=== PATIENT | female | born 1940 | race Caucasian/White ===

== ENCOUNTER 2023-10-23 13:51 | Inpatient (IN) | payer OTHER, SELFPAY ==
[2023-10-19] VITALS (17 sets, daily range): BP systolic 161–207; BP diastolic 75–174; PULSE 78; O2SAT 97; BMI 23.4; BMI 23.6
--- NOTE | 2023-10-19 13:41 | ED.GENMED ---
History of Present Illness
General
Chief Complaint: Weakness
Source: patient
Time Seen by Provider: 10/19/23 13:21
Travel History
Have you had any contact with someone who has COVID-19?: No
Do you have any symptoms of coronavirus? Fever > 100 degrees, chills, cough, shortness of breath, sore throat, loss of taste or smell, muscle aches, or headache?: No
History of Present Illness
History of Present Illness:
83-year-old female with past medical history of multiple myeloma presenting to the emergency department for evaluation of generalized weakness, diminished p.o. intake and generally feeling unwell over the last week. Patient went to [facility] on evening last week and was admitted until Monday when she was discharged back home however patient states that she was told she would be going to a rehab facility so is unclear as to why she was discharged home and
not to rehab. She states she never feels as if she should have gone home as she continues to feel weak and noted her blood pressure was very elevated while she was in the hospital. Patient's friend was coming to pick her up to take her to her
oncology appointment today when the friend describes the patient to be 'as white as a ghost' and did not look well so they decided to come to the emergency here for further evaluation. Friend notes patient does look better now and patient does
admit to feeling a little bit better presently but still generally weak. She notes that she was given a walker to go home with. No urinary symptoms, bowel changes, chest pain, shortness of breath or any other alarcon.
Past History
Past History
ED Past Medical History: Cancer and HTN
Social History
Tobacco: Non-smoker
Alcohol: None
Drug: None
Personal:
Living: alone
Review of Systems
Review of Systems
All Other Systems: ROS reviewed and negative except as documented in HPI and ROS
Phy Exam
Physical Exam
Physical Exam:
GENERAL: Alert , in no apparent distress
EYE: clear conjunctiva b/l
HEAD: NCAT
ENT: o/p clr, mmm.
CARDIAC: Regular rate and rhythm right anterior chest wall port.
LUNGS: Clear breath sounds bilaterally, no acute respiratory distress, no wheezes/rales/rhonchi
ABDOMEN: Soft, without focal tenderness, no r/g, no cvat
NEUROLOGICAL: Alert and oriented
SKIN: Warm and dry, skin intact.
MUSCULOSKELETAL: Trace ankle edema, well perfused.
PSYCH: Normal and appropriate interaction.
Scores
Heart Failure Risk
Heart Failure Risk Score: Not Applicable
Heart Score for Chest Pain Patients
STEMI patient?: Not applicable
Withdrawal Assessment of Alcohol
Withdrawal Assessment Completed?: Not applicable
Course
Orders/Labs/Results
Orders:
Orders
10/19/23 13:32
Electrocardiogram (*1) Urgent
Reason for Study: Fatigue / Weakness
EKG- Treatment ONCE
10/19/23 13:34
Case Management Consult ONCE
Case Management Consult: Discharge Planning
Comment: needs rehab
PT Consult [Pt Eval And Treat] Urgent
Activity Level: Ambulate
10/19/23 14:27
Complete Blood Count/With Diff Urgent
Comprehensive Metabolic Panel Urgent
Magnesium Urgent
10/19/23 15:06
Urinalysis Reflex To Culture Urgent
Date Specimen was Collected: 10/19/23
Time Specimen was Collected: 13:41
Urine Microscopic Reflex Cult Urgent
Labetalol HCl [Trandate] 10 mg IV NOW STA
10/19/23 16:10
Labetalol HCl [Trandate] 10 mg IV NOW STA
Abnormal Lab Results
10/19/23 10/19/23
14:27 15:06
WBC 13.1 H 10^3/uL
(4.8-10.8)
RBC 3.19 L 10^6/uL
(4.20-5.40)
Hgb 10.7 L g/dL
(12.0-16.0)
Hct 32.7 L %
(37.0-47.0)
MCV 102.5 H fL
(81.0-99.0)
MCH 33.5 H pg
(27.0-31.0)
MCHC 32.7 L g/dL
(33.0-37.0)
MPV 11.3 H fL
(7.4-10.4)
Abs Immat Gran (auto) 0.3 H 10^3/uL
(0-0.05)
Absolute Neuts (auto) 10.3 H 10^3/uL
(1.4-6.5)
Absolute Lymphs (auto) 0.8 L 10^3/uL
(1.2-3.4)
Absolute Monos (auto) 1.0 H 10^3/uL
(0.1-0.6)
Immature Gran % 2.2 H %
(0-0.5)
Neutrophils % 79.1 H %
(42.2-75.2)
Lymphocytes % 6.4 L %
(20.5-51.1)
Chloride 109 H mmol/L
(98-107)
BUN 21 H mg/dl
(7-17)
ALT 46 H U/L
(0-35)
Alkaline Phosphatase 181 H U/L
(38-126)
Total Protein 5.0 L g/dl
(6.3-8.2)
Albumin 3.2 L g/dl
(3.5-5.0)
Urine Albumin (Reflex) 1+ A
(Neg - Trace)
10/19/23 14:27
10/19/23 14:27
Vital Signs
Initial and Last Documented VS:
Initial Vital Signs
Temp Pulse Resp BP Pulse Ox
97.8 F 100 18 182/107 96
10/19/23 11:39 10/19/23 11:39 10/19/23 11:39 10/19/23 11:39 10/19/23 11:39
Last Documented Vital Signs
Temp Pulse Resp BP Pulse Ox
97.8 F 71 23 202/88 97
10/19/23 11:39 10/19/23 14:30 10/19/23 14:30 10/19/23 14:16 10/19/23 14:30
MDM/Problems Addressed
Differential Diagnosis Includes:
Electrolyte disturbance, anemia, hypertensive urgency, no symptoms that would be suggestive of infection outside of weakness
MDM/Problems Addressed:
83-year-old female presenting to the emergency department for evaluation of generalized weakness. Recent admit at [facility] but was discharged home this past Monday evening. Patient reports that she was all set to go to rehab however it is
unclear as to why patient was discharged home and not to a rehab facility. Patient reports she does not feel comfortable or safe at home on her own presently. Patient's friend who is present with her in the emergency department states patient did
look very pale and unwell earlier today. Overall patient does appear hemodynamically stable and in no acute distress. Hypertension in triage was noted, during my exam down to 168/90. Case management and physical therapy consult ordered.
Reassessment following.
Chronic conditions affecting care: HTN
Acute Exacerbation and/or Progression of Chronic Illness: HTN
*Pulse Oximetry
Patient hypoxic: no
*Business Services Associate Interpretation
Rate: normal
Rhythm: sinus
*Critical Care Note
Total Time (30-74mins, 75-104mins- exclusive of procedures): Not Applicable
Patient Management
Discussion with other providers: Hospitalist and Other (Physical Therapy/Case Management)
Escalation/DeEscalation of care consider admission/obs:
Patient seen by physical therapy team. She was able to ambulate unassisted and ultimately physical therapy felt patient would do okay at home and does not need rehab. I discussed this with patient and she would feel comfortable being discharged
home but is still concerned about her blood pressure. This was rechecked multiple times and remains elevated. Patient reports good compliance with her antihypertensive regimen. Will trial a dose of IV labetalol. Awaiting case management
consultation in hopes to have a visiting nurse come out to patient's home for continued evaluation
Patient's blood pressure continuously elevated despite IV labetalol. Second dose was given but due to multiple pressures with systolic around 190-210 and diastolic around 100 feel patient would be best served admitted for blood pressure monitoring
and management. Case management is aware that patient to be admitted. They will continue their consultation with disposition planning. Hospitalist team is aware and accepts for continued evaluation and treatment.
ED Attending Note
-
Portions of this chart may have been created with voice recognition software.� Occasional wrong word or��sound alike� substitutions may have occurred due to the inherent limitations of voice recognition software.
Discharge Plan
Departure
Patient Disposition: Admit
Date of Disposition: 10/19/23
Time of Disposition: 16:11
Presentation/result/management discussed w/ accepting MD/DO: Hospitalist
Discharge Problem:
Hypertensive urgency, Anemia, Generalized weakness
Prescriptions:
No Action
dexamethasone 4 mg tablet
40 mg PO FR
zolpidem 10 mg tablet
3.3 mg PO HSPRN PRN (Reason: sleep)
Patient Comments:
07/08/22-patint states she cut this in thirds
glyburide 1.25 mg tablet
1.25 mg PO BID
therapeutic multivitamin Tablet
1 tab PO DAILY
ferrous sulfate 325 mg (65 mg iron) Tablet
162.5 mg PO DAILY
ibuprofen 400 mg Tablet
400 mg PO Q8H PRN (Reason: back pain)
cholecalciferol (vitamin D3) [Vitamin D3] 25 mcg (1,000 unit) Tablet
25 mcg PO DAILY
omega 5-clg-snr-fish oil [Fish Oil] 1,000 mg (120 mg-180 mg) Capsule
1 cap PO DAILY
losartan 50 mg Tablet
50 mg PO DAILY Qty: 30 3RF
metoprolol succinate 25 mg Tablet Extended Release 24 Hr
25 mg PO BID Qty: 60 3RF
Referrals:
Gerard Ayers MD [Family Provider] -
Interventions
Interventions:
*Risk Screen - Suicide Last Done: 10/19/23 11:42
*General Assessment Last Done: 10/19/23 11:42
*Neglect/Abuse Screening Last Done: 10/19/23 11:42
ED- Cardiac Assessment Last Done: 10/19/23 13:07
ED- Neurological Assessment Last Done: 10/19/23 13:07
ED- Pulmonary Assessment Last Done: 10/19/23 13:07
Discharge Date and Time
Print Language: THAI
[2023-10-19 14:45] LABS: % Basophils 0.7 % (0-2); % Eosinophils 3.7 % (0-6); % Immature Granulocytes 2.2 % (0-0.5); % Lymphocytes 6.4 % (20.5-51.1); % Monocytes 7.9 % (1.7-9.3); % Neutrophils 79.1 % (42.2-75.2); Absolute Basophils 0.1 10^3/uL (0-0.2); Absolute Eosinophils 0.5 10^3/uL (0-0.7); Absolute Immature Granulocytes 0.3 10^3/uL (0-0.05); Absolute Lymphocytes 0.8 10^3/uL (1.2-3.4); Absolute Neutrophils 10.3 10^3/uL (1.4-6.5); Hematocrit 32.7 % (37.0-47.0); Hemoglobin 10.7 g/dL (12.0-16.0); Mean Corp Hgb Conc. 32.7 g/dL (33.0-37.0); Mean Corpuscular Hgb 33.5 pg (27.0-31.0); Mean Corpuscular Volume 102.5 fL (81.0-99.0); Mean Platelet Volume 11.3 fL (7.4-10.4); Nucleated Red Blood Cells % 0 %; Platelet Count 296 10^3/uL (130-400); Red Blood Cell Count 3.19 10^6/uL (4.20-5.40); Red Cell Dist. Width 13.3 % (11.5-14.5); White Blood Cell Count 13.1 10^3/uL (4.8-10.8)
[2023-10-19 14:54] LABS: ALT (SGPT) 46 U/L (0-35); AST (SGOT) 35 U/L (14-36); Albumin 3.2 g/dl (3.5-5.0); Alkaline Phosphatase 181 U/L (38-126); Blood Urea Nitrogen 21 mg/dl (7-17); Calcium 9.8 mg/dl (8.4-10.2); Carbon Dioxide 27 mmol/L (22-30); Chloride 109 mmol/L (98-107); Estimated Creatinine Clearance 49 ml/min; Glucose 97 mg/dl (70-99); Magnesium 1.9 mg/dl (1.6-2.3); Sodium 139 mmol/L (135-145); eGFR > 60.00
[2023-10-19 15:15] LABS: Urine Albumin 1+ (Neg - Trace); Urine Bilirubin Negative (Negative); Urine Character Clear (Clear); Urine Color Yellow; Urine Glucose Negative (Negative); Urine Ketone Negative (Negative); Urine Leukocyte Negative (Negative); Urine Nitrite Negative (Negative); Urine Occult Blood Negative (Negative); Urine Specific Gravity 1.015 (<1.030); Urine Urobilinogen Negative (Neg - 1+)
[2023-10-19] MEDS: TRANDATE 10 MG IV (15:17)
[2023-10-19 15:33] LABS: Urine Mucus Few; Urine Squamous Cell 0-2 /LPF (Few)
[2023-10-19 15:34] LABS: Urine Amorphous Seen; Urine Granular Cast 0-2 /LPF (0); Urine Hyaline Cast 0-2 /LPF (0-2); Urine Red Blood Cell 0-2 /HPF (0-2)
--- NOTE | 2023-10-19 16:43 | HPS.HSE ---
Addendum entered and electronically signed by Tamara Hartley MD 10/19/23 16:52:
Corrections to med rec made. Patient not on glyburide and not on levothyroxine.
Original Note:
Family Physician
-
Family Physician: Gerard Ayers
Chief Complaint
-
weakness
History of Present Illness
83-year-old female past medical history of multiple myeloma on chemotherapy, hypertension, iron deficiency anemia, hyperlipidemia, prediabetes/steroid-induced hyperglycemia, presenting with generalized weakness, decreased p.o. intake and generally
feeling unwell over the past week. She went to [facility] on evening last week after a fall due to generalized weakness and was admitted until 2 days ago and discharged back home. During the hospitalization she was found to be
hypertensive and states that her losartan was increased from 50 mg to 100 mg. Patient was told that she will be going to rehab facility and it was unclear why she was discharged home as she continues to feel very weak.
Patient's friend was coming to pick her up to take her to oncology appointment today when the friend described the patient to look white as a ghost so they brought her to the emergency room. Friend notes the patient is better now and patient does
admit to feeling better although still weak.
She states that she has had a dry cough for the past 2 weeks with some shortness of breath with exertion. She had 2 chest x-rays performed by her primary care physician within the past week which were apparently unremarkable. She denies nausea or
vomiting, abdominal pain or diarrhea. She denies any urinary symptoms. She denies any fevers or chills. She denies any significant headache at this time. Denies any blurry vision. Denies any numbness or tingling or focal weakness. She does
sometimes feel dizzy. She has some increased lower extremity edema but has lost weight recently.
She last received chemotherapy a week ago and is supposed to receive it today.
She denies smoking or alcohol use.
Medical History
Past Medical History
Past Medical History: Reports Other (multiple myeloma on chemotherapy, hypertension, iron deficiency anemia, hyperlipidemia, prediabetes/steroid-induced hyperglycemia,)
Past Surgical History: Reports None
Social History
Tobacco: Non-smoker
Alcohol: None
Drug: None
Family History
Family History: Not pertinent
Allergies / Home Medications
Allergies reflects when Allergies were last updated in [facility].
Home Medications with original date entered in [facility]
Allergy/Medication List:
Allergies
Allergy/AdvReac Type Severity Reaction Status Date / Time
No Known Allergies Allergy Verified 10/19/23 11:41
Home Medications
cholecalciferol (vitamin D3) 25 mcg (1,000 unit) tablet (Vitamin D3) 25 mcg PO DAILY Supplement 07/08/22
ferrous sulfate 325 mg (65 mg iron) tablet 162.5 mg PO DAILY Supplement 07/08/22
ibuprofen 400 mg tablet 400 mg PO Q8H PRN back pain 07/08/22
omega 8-jiw-tcc-fish oil 1,000 mg (120 mg-180 mg) capsule (Fish Oil) 1 cap PO DAILY Supplement 07/08/22
therapeutic multivitamin 1 tab PO DAILY Supplement 07/08/22
zolpidem 10 mg tablet 10 mg PO HSPRN PRN sleep 07/08/22
losartan 50 mg tablet 50 mg PO DAILY #30 tabs 07/11/22
metoprolol succinate 25 mg tablet,extended release 24 hr 25 mg PO BID #60 tabs 07/11/22
acyclovir 400 mg tablet 400 mg PO BID 10/19/23
ibandronate 150 mg tablet 150 mg PO QMONTH 10/19/23
levothyroxine 50 mcg tablet 50 mcg PO DAILY 10/19/23
metformin 500 mg tablet 500 mg PO DAILY 10/19/23
rosuvastatin 20 mg tablet 20 mg PO DAILY 10/19/23
Review of Systems
-
History Source: Patient
A 12 point ROS was completed and negative except as noted: Yes
Constitutional: Reports See HPI
EENT: Reports No Symptoms
Respiratory: Reports See HPI
Cardiac: Reports No Symptoms
Abdomen/GI: Reports No Symptoms
: Reports No Symptoms
Musculoskeletal: Reports No Symptoms
Skin: Reports No Symptoms
Neurological: Reports No Symptoms
Endocrine: Reports No Symptoms
Hematologic/Lymphatic: Reports No Symptoms
Psych: Reports No Symptoms
Physical Exam
Vital Signs
Vital Signs
Temp Pulse Resp BP Pulse Ox
97.8 F 71 23 202/88 97
10/19/23 11:39 10/19/23 14:30 10/19/23 14:30 10/19/23 14:16 10/19/23 14:30
Physical Exam
General: Well Developed, Well Nourished and No Apparent Distress
HEENT: NormoCephalic, Moist mucous membranes and Atraumatic
Respiratory: Clear
Cardiac: S1/S2, Regular Rhythm and Peripheral Edema; No Murmur or Rub
GI: Soft, Non Tender, Non Distended and Normal Bowel Sounds; No Organomegaly
Rectal: Deferred by Provider
Musculoskeletal: No Clubbing, No Cyanosis and No Edema
Skin: No Rash
Neuro: Nonfocal/grossly intact
Laboratory Results
-
10/19/23 14:27
10/19/23 14:27
Laboratory Results
Total Bilirubin 1.0 mg/dl (0.2-1.3) 10/19/23 14:27
AST 35 U/L (14-36) 10/19/23 14:27
ALT 46 U/L (0-35) H 10/19/23 14:27
Alkaline Phosphatase 181 U/L (38-126) H 10/19/23 14:27
Data Reviewed
-
Lab Data: Labs Reviewed by me
Old Records: Reviewed
Impression/Plan
-
IMPRESSION:
PLAN:
# Fatigue likely secondary to hypertensive urgency
-Blood pressure as high as 202/88
-IV labetalol given without any response
-Give IV hydralazine every 6 as needed
-Continue losartan 100 mg
-Continue metoprolol 25 mg twice daily
-PT/OT
# Leukocytosis likely secondary to weekly steroids
-Continue to monitor
# Dry cough and dyspnea
-Check chest x-ray
-Check COVID
Incidentally discovered meningioma
-CT head shows 8 mm calcified meningioma in the left paramedian superior/anterior frontal region abutting the underlying left frontal lobe cortex without significant mass effect
Moderate bilateral leukomalacia
-No clinical signs or symptoms of CVA at this time
Multiple myeloma on chemotherapy
-Continue prophylactic acyclovir
History of syncopal episode attributed to vasovagal/orthostatic versus arrhythmia previously
Iron deficiency anemia
-Hemoglobin stable at 10.7
-Continue iron sulfate
Hyperlipidemia
-Continue statin
Prediabetes/steroid-induced hyperglycemia
-Hold glyburide
-Continue metformin
-Insulin sliding scale
Hypothyroidism
-Continue levothyroxine
Osteoporosis
-Continue Bactrim
DNR/DNI
DVT prophylaxis�heparin
Regular diet
[2023-10-19] MEDS: APRESOLINE 10 MG IV (16:48)
[2023-10-19 17:48] LABS: COVID-19 Antigen Negative (Negative)
--- NOTE | 2023-10-19 18:35 | CM ---
Reviewed chart, received consult for discharge planning and met with patient to obtain information for assessment. Patient stated that she was just discharged to home with VN through [facility], from [facility]. Patient stated that she felt
weak and therefore came back to the ER.
Patient stated that prior to her most recent hospitalization, she was independent with all of her ADLs, personal care, dressing, bathing and ambulating. She relayed that she just started using a walker she acquired at [facility]. She was able to
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
She is current with [facility] but no longer wants for that agency to come out.
She has never been to a SNF.
Patient has a prescription plan and uses [facility] for all of her medications.
Patient's PCP is, Gerard Ayers.
Patient stated that she wanted to so to a SNF, however [facility] sent her home with VN. She feels too weak to be at home.
Spoke with ED MD who stated that patient was going to be admitted due to her high bp.
Plan: Case management will continue to follow and assist with discharge planning. Home with VN vrs. SNF.
[2023-10-19] MEDS: HEPARIN 5000 UNITS SC (21:21)
[2023-10-19] MEDS: THERAGRAN 1 TABLET PO (21:21)
[2023-10-19] MEDS: TOPROL XL 25 MG PO (21:21)
[2023-10-19] MEDS: ZOVIRAX 400 MG PO (21:22)
[2023-10-19] MEDS: LIPITOR 10 MG PO (21:34)
--- NOTE | 2023-10-19 21:55 | PTCARENOTE ---
Pt received from ED via stretcher. Ambulated to bed without incident. AAOx3, forgetful to details. Telemetry = SR w/PVCs. Admission and assessment completed, somewhat poor historian. Oriented to surroundings and plan of care discussed. R SubQ
port accessed. Call greene within reach, bed alarm active for safety. Plan of care ongoing.
[2023-10-19] MEDS: AMBIEN 5 MG PO (22:53)
[2023-10-20] VITALS (9 sets, daily range): BP systolic 142–207; BP diastolic 69–111; PULSE 84–92; O2SAT 96; BMI 23.6
[2023-10-20 05:03] LABS: % Basophils 0.7 % (0-2); % Immature Granulocytes 1.9 % (0-0.5); % Lymphocytes 6.1 % (20.5-51.1); % Monocytes 8.2 % (1.7-9.3); % Neutrophils 79.1 % (42.2-75.2); Absolute Basophils 0.1 10^3/uL (0-0.2); Absolute Eosinophils 0.5 10^3/uL (0-0.7); Absolute Immature Granulocytes 0.3 10^3/uL (0-0.05); Absolute Lymphocytes 0.8 10^3/uL (1.2-3.4); Absolute Monocytes 1.1 10^3/uL (0.1-0.6); Absolute Neutrophils 10.7 10^3/uL (1.4-6.5); Hematocrit 31.5 % (37.0-47.0); Hemoglobin 10.3 g/dL (12.0-16.0); Mean Corp Hgb Conc. 32.7 g/dL (33.0-37.0); Mean Corpuscular Hgb 33.1 pg (27.0-31.0); Mean Corpuscular Volume 101.3 fL (81.0-99.0); Mean Platelet Volume 11.4 fL (7.4-10.4); Nucleated Red Blood Cells % 0 %; Platelet Count 295 10^3/uL (130-400); Red Blood Cell Count 3.11 10^6/uL (4.20-5.40); Red Cell Dist. Width 13.3 % (11.5-14.5); White Blood Cell Count 13.5 10^3/uL (4.8-10.8)
[2023-10-20 05:31] LABS: ALT (SGPT) 38 U/L (0-35); AST (SGOT) 27 U/L (14-36); Alkaline Phosphatase 162 U/L (38-126); Blood Urea Nitrogen 17 mg/dl (7-17); Carbon Dioxide 25 mmol/L (22-30); Chloride 109 mmol/L (98-107); Estimated Creatinine Clearance 49 ml/min; Glucose 99 mg/dl (70-99); Sodium 140 mmol/L (135-145); Total Bilirubin 1.1 mg/dl (0.2-1.3); Total Protein 4.9 g/dl (6.3-8.2); eGFR > 60.00
[2023-10-20] MEDS: COZAAR 100 MG PO (07:59)
[2023-10-20] MEDS: TOPROL XL 25 MG PO (08:00)
[2023-10-20] MEDS: ZOVIRAX 400 MG PO ×2 (08:00→20:33)
[2023-10-20] MEDS: GLUCOPHAGE 500 MG PO (08:00)
[2023-10-20] MEDS: VITAMIN D3 (cholecalciferol) 25 MCG PO (08:00)
[2023-10-20] MEDS: HEPARIN 5000 UNITS SC ×2 (08:01→20:34)
--- NOTE | 2023-10-20 08:18 | W.PN.HOSP.TC ---
Today's Communication/Plan
-
Will need to continue to adjust BP meds may need to add a thiazide to her losartan
Metoprolol XL to 50 mg every 12
Continue hydralazine as needed
Check orthostatics and PT and see if she will qualify for rehab
Assessment / Plan
Assessment / Plan
83-year-old female past medical history of multiple myeloma on chemotherapy, hypertension, iron deficiency anemia, hyperlipidemia, prediabetes/steroid-induced hyperglycemia, presenting with generalized weakness, decreased p.o. intake and generally
feeling unwell over the past week. She went to [facility] on evening last week after a fall due to generalized weakness and was admitted until 2 days ago and discharged back home. During the hospitalization she was found to be
hypertensive and states that her losartan was increased from 50 mg to 100 mg. Patient was told that she will be going to rehab facility and it was unclear why she was discharged home as she continues to feel very weak.
Patient's friend was coming to pick her up to take her to oncology appointment today when the friend described the patient to look white as a ghost so they brought her to the emergency room. Friend notes the patient is better now and patient does
admit to feeling better although still weak.
She states that she has had a dry cough for the past 2 weeks with some shortness of breath with exertion. She had 2 chest x-rays performed by her primary care physician within the past week which were apparently unremarkable. She denies nausea or
vomiting, abdominal pain or diarrhea. She denies any urinary symptoms. She denies any fevers or chills. She denies any significant headache at this time. Denies any blurry vision. Denies any numbness or tingling or focal weakness. She does
sometimes feel dizzy. She has some increased lower extremity edema but has lost weight recently.
She last received chemotherapy a week ago and is supposed to receive it today.
She denies smoking or alcohol use.
Her last admission here in June noted suspicion of underlying arrhythmia and orthostatic hypotension and at that time her lisinopril was discontinued due to possible RAJIV inhibitor cough and switched to an ARB also may have had long QT at that
time
# Fatigue likely secondary to hypertensive urgency
-Blood pressure as high as 202/88
-IV labetalol given without any response
-Give IV hydralazine every 6 as needed
-Continue losartan 100 mg
-Continue metoprolol XL but increased today to 50 mg every 12
-PT/OT/check of orthostatics does not show orthostatic hypotension/with BP standing of 202 and lying of 187
# Leukocytosis likely secondary to weekly steroids
-Continue to monitor
# Dry cough and dyspnea
-Check chest x-ray unremarkable
-Check COVID was negative
Incidentally discovered meningioma
-CT head shows 8 mm calcified meningioma in the left paramedian superior/anterior frontal region abutting the underlying left frontal lobe cortex without significant mass effect
Moderate bilateral leukomalacia
-No clinical signs or symptoms of CVA at this time
Multiple myeloma on chemotherapy
-Continue prophylactic acyclovir
History of syncopal episode attributed to vasovagal/orthostatic versus arrhythmia previously
Iron deficiency anemia
-Hemoglobin stable at 10.7
-Continue iron sulfate
Hyperlipidemia
-Continue statin
Prediabetes/steroid-induced hyperglycemia
-Hold glyburide
-Continue metformin
-Insulin sliding scale
Hypothyroidism
-Continue levothyroxine
Osteoporosis
-Continue Bactrim
DNR/DNI
DVT prophylaxis�heparin
Regular diet
Anticipated Discharge: Within 24 hours
Subjective/Interval History
-
Date of Service: October 20, 2023
Some anxiety but happy to be here as a logistical issues with [facility] recent admit and referral to rehab which never took place she ended up going home and remaining weak and unable to function at home.
Objective Data
-
Labs:
Laboratory Results
10/20/23
04:27
WBC 13.5 H
Hgb 10.3 L
Hct 31.5 L
Plt Count 295
Sodium 140
Potassium 4.0
Chloride 109 H
Carbon Dioxide 25
BUN 17
Creatinine 0.5 L
Glucose 99
Calcium 10.0
Total Bilirubin 1.1
AST 27
ALT 38 H
Alkaline Phosphatase 162 H
Vital Signs:
Vital Signs
Temp Pulse Resp BP Pulse Ox
98.7 F 89 17 166/91 95
10/20/23 07:43 10/20/23 08:00 10/20/23 07:43 10/20/23 08:00 10/20/23 07:43
I&O
10/19/23 10/20/23 10/21/23
06:59 06:59 06:59
Intake Total 480 / 480
Balance 480 / 480
Review of Systems
-
History Source: Patient
EENT: Reports No Symptoms Reported
Respiratory: Reports No Symptoms
Cardiac: Reports No Symptoms
Abdomen/GI: Reports No Symptoms
Physical Exam
-
General: Well Developed
HEENT: Normocephalic
Respiratory: Clear to Auscultation
Cardiac: Regular Rhythm and Other (Right upper chest Mediport intact)
GI: Soft, Nontender and Nondistended
Skin: Warm
Neuro: Awake, Alert and Oriented
Psych: Calm
Data Reviewed
-
Total Time Spent with Patient (in minutes): 45
Labs: Labs Reviewed by me (Some mild leukocytosis persists from admission/hemoglobin 10.3/)
[2023-10-20 15:31] LABS: Vitamin B12 879 pg/ml (239-931)
[2023-10-20] MEDS: THERAGRAN 1 TABLET PO (17:13)
[2023-10-20] MEDS: LIPITOR 10 MG PO (20:33)
[2023-10-20] MEDS: TOPROL XL 50 MG PO (20:33)
[2023-10-20] MEDS: AMBIEN 5 MG PO (22:58)
[2023-10-20] MEDS: APRESOLINE 10 MG IV (22:59)
--- NOTE | 2023-10-20 23:00 | PTCARENOTE ---
Patient's Bp-168/110 ( manual). Hydralazine IV ordered for systolic Bp >180. Nestor CYTOLOGIST made aware. See MAR for new orders
[2023-10-21] VITALS (7 sets, daily range): BP systolic 158–188; BP diastolic 74–104; PULSE 97; O2SAT 95
[2023-10-21 04:47] LABS: Hematocrit 30.8 % (37.0-47.0); Hemoglobin 10.1 g/dL (12.0-16.0); Mean Corp Hgb Conc. 32.8 g/dL (33.0-37.0); Mean Corpuscular Hgb 33.4 pg (27.0-31.0); Platelet Count 308 10^3/uL (130-400); Red Blood Cell Count 3.02 10^6/uL (4.20-5.40); Red Cell Dist. Width 13.5 % (11.5-14.5); White Blood Cell Count 11.1 10^3/uL (4.8-10.8)
[2023-10-21 05:13] LABS: Blood Urea Nitrogen 22 mg/dl (7-17); Calcium 9.8 mg/dl (8.4-10.2); Carbon Dioxide 28 mmol/L (22-30); Chloride 109 mmol/L (98-107); Estimated Creatinine Clearance 42 ml/min; Glucose 120 mg/dl (70-99); Potassium 3.8 mmol/L (3.5-5.1); Sodium 139 mmol/L (135-145); eGFR > 60.00
[2023-10-21] MEDS: HEPARIN 5000 UNITS SC ×2 (08:25→21:35)
[2023-10-21] MEDS: VITAMIN D3 (cholecalciferol) 25 MCG PO (08:26)
[2023-10-21] MEDS: ZOVIRAX 400 MG PO ×2 (08:26→21:36)
[2023-10-21] MEDS: TOPROL XL 50 MG PO ×2 (08:26→21:36)
[2023-10-21] MEDS: COZAAR 100 MG PO (08:26)
[2023-10-21] MEDS: GLUCOPHAGE 500 MG PO (08:26)
--- NOTE | 2023-10-21 09:59 | CON.ONC ---
Impression
Impression
Hypertensive urgency
Cough, dyspnea, rales on exam
IgA lambda multiple myeloma, on carfilzomib and dexamethasone per Dr Aden
Macrocytic anemia
History of pulmonary embolism, January 2022, likely provoked by Revlimid
Plan
Plan
Carfilzomib can cause hypertensive crisis
Recommend holding myeloma treatment pending further workup and management
Will check echocardiogram and troponin/BNP, ordered
With cough, dyspnea, and rales on lung exam, I have ordered CT scan of the chest with contrast -she has a history of pulmonary embolism provoked by Revlimid, and is at risk for opportunistic infections on chronic/intermittent high-dose steroids
Would benefit from onco-cardiology consultation (Dr. Elizalde or Dr. Aguilar)
Will follow along
Patient History
History of Present Illness
This is an 83-year-old female with history of IgA lambda multiple myeloma, patient of Dr. Farris in [place], currently being treated with dexamethasone 40 mg weekly and carfilzomib, with very good response, who presented to the emergency room on September
2023 with generalized weakness, poor p.o. intake and feeling unwell. She had been hospitalized several days prior at [facility] with weakness and was found to be hypertensive. Her losartan was increased from 50 mg to 100 mg during the past.
She did not qualify for inpatient rehab, and was discharged home. On the day of presentation to the emergency room at [place], she was scheduled to have treatment and her oncologist's office, but she was feeling poorly and asked her friend to
bring her to [place] emergency room instead. Blood pressure in the emergency room was elevated to 202/88. She was admitted for hypertensive urgency.
She has also been complaining of dry cough and dyspnea, chest x-ray showed cardiomegaly. COVID testing was negative. She last had an echocardiogram in early 2022 which showed LVH and normal ejection fraction. She does not report nausea, vomiting,
abdominal pain, diarrhea, constipation, leg swelling, fevers.
Past-Medical/Surgical History
Past medical history includes IgA lambda multiple myeloma, pulmonary embolism in January 2022 secondary to Revlimid, hypertension, diabetes, hyperlipidemia. No prior surgeries.
Social history: She is , drinks alcohol rarely, never smoker.
Family history: Noncontributory
Patient Medication
�Medication �Instructions �Recorded �Confirmed �Last Taken �Type
cholecalciferol (vitamin D3) 25 25 mcg PO DAILY Supplement 07/08/22 10/19/23 Unknown History
mcg (1,000 unit) tablet (Vitamin
D3)
ibuprofen 400 mg tablet 400 mg PO Q8H PRN back pain 07/08/22 10/19/23 07/08/22 History
omega 5-ucx-bwi-fish oil 1,000 mg 1 cap PO QPM Supplement 07/08/22 10/19/23 Unknown History
(120 mg-180 mg) capsule (Fish Oil)
therapeutic multivitamin 1 tab PO QPM Supplement 07/08/22 10/19/23 Unknown History
zolpidem 10 mg tablet 3.3 mg PO HS insomnia 07/08/22 10/19/23 Unknown History
losartan 50 mg tablet 50 mg PO DAILY #30 tabs 07/11/22 10/19/23 10/19/23 Rx
acyclovir 400 mg tablet 400 mg PO BID Infection 10/19/23 10/19/23 10/19/23 History
ibandronate 150 mg tablet 150 mg PO QMONTH Osteoporosis 10/19/23 10/19/23 3 Weeks Ago History
~09/28/23
lovastatin 20 mg tablet 20 mg PO HS High Cholesterol 10/19/23 10/19/23 10/18/23 History
metformin 500 mg tablet 500 mg PO DAILY Diabetes 10/19/23 10/19/23 Unknown History
metoprolol succinate 25 mg 25 mg PO BID Blood Pressure 10/19/23 10/19/23 Unknown History
tablet,extended release 24 hr
Active Medications
Generic Name Dose Route Start Last Admin
Trade Name Freq PRN Reason Stop Dose Admin
Acyclovir Sodium 400 mg 10/19/23 21:00 10/21/23 08:26
Acyclovir Sodium 200 Mg Capsule PO 10/29/23 20:59 400 mg
BID EULALIA Administration
Atorvastatin Calcium 10 mg 10/19/23 22:00 10/20/23 20:33
Atorvastatin (Lipitor) 10 Mg Tablet PO 11/16/23 21:59 10 mg
HS EULALIA Administration
Cholecalciferol 25 mcg 10/20/23 08:00 10/21/23 08:26
Cholecalciferol (Vitamin D3) 25 Mcg Tablet (1,000 Units) PO 11/17/23 07:59 25 mcg
DAILY EULALIA Administration
Heparin Sodium 5,000 units 10/19/23 20:16 10/21/23 08:25
Heparin 5,000 Units/Ml 1 Ml Vial SC 11/16/23 20:15 5,000 units
Q12 EULALIA Administration
Heparin Sodium (Porcine) 500 unit 10/20/23 23:03 10/20/23 23:29
Heparin Flush Pf (100 Unit/Ml) 5 Ml Syringe IV 11/17/23 23:02 500 unit
PRN PRN Administration
SC PORT FLUSH
Hydralazine HCl 10 mg 10/20/23 22:57 10/20/23 22:59
Hydralazine 20 Mg/Ml Vial IV 11/16/23 16:36 10 mg
Q6HPRN PRN Administration
SBP>180 DBP>100
Losartan Potassium 100 mg 10/20/23 08:00 10/21/23 08:26
Losartan 100 Mg Tablet PO 11/17/23 07:59 100 mg
DAILY EULALIA Administration
Metformin HCl 500 mg 10/20/23 08:00 10/21/23 08:26
Metformin 500 Mg Regular Release Tablet PO 11/17/23 07:59 500 mg
DAILY EULALIA Administration
Metoprolol Succinate 50 mg 10/20/23 20:00 10/21/23 08:26
Metoprolol 50 Mg Extended Release Tablet PO 11/17/23 19:59 50 mg
BID EULALIA Administration
Multivitamins Therapeutic 1 tablet 10/19/23 20:16 10/20/23 17:13
Multivitamin Tablet PO 11/16/23 20:15 1 tablet
QPM EULALIA Administration
Sodium Chloride 0 flush 10/19/23 21:00
Sodium Chloride 0.9% (Flush) Syringe IV 11/16/23 20:59
PER PROTOCOL EULALIA
Zolpidem Tartrate 5 mg 10/19/23 22:00 10/20/23 22:58
Zolpidem Tartrate 5 Mg Tablet PO 11/16/23 21:59 5 mg
HS EULALIA Administration
Review of Systems
-
History Source: Patient
All Other Systems: Not reviewed unless documented
Physical Exam
-
General: Well Developed, Well Nourished and No Apparent Distress
HEENT: Negative Jaundice
Cardiology: Normal Sinus Rhythm
Pulmonary: Rales
GI: Soft and Normal Bowel Sounds
Musculoskeletal: No Clubbing, No Cyanosis and No Edema
Extremities: No C/C/E
Neurology: Non Focal, No Lateralizing Symptoms and No Word Finding Difficulty
Skin: Warm and Dry; Negative Rash
Hematologic / Lymphatic: No Lymphadenopathy
Psych: Calm and Intact Judgement/Insight
Labs
Lab Results
WBC 11.1 10^3/uL (4.8-10.8) H 10/21/23 04:28
RBC 3.02 10^6/uL (4.20-5.40) L 10/21/23 04:28
Hgb 10.1 g/dL (12.0-16.0) L 10/21/23 04:28
Hct 30.8 % (37.0-47.0) L 10/21/23 04:28
MCV 102.0 fL (81.0-99.0) H 10/21/23 04:28
MCH 33.4 pg (27.0-31.0) H 10/21/23 04:28
MCHC 32.8 g/dL (33.0-37.0) L 10/21/23 04:28
RDW 13.5 % (11.5-14.5) 10/21/23 04:28
Plt Count 308 10^3/uL (130-400) 10/21/23 04:28
MPV 11.0 fL (7.4-10.4) H 10/21/23 04:28
Abs Immat Gran (auto) 0.3 10^3/uL (0-0.05) H 10/20/23 04:27
Absolute Neuts (auto) 10.7 10^3/uL (1.4-6.5) H 10/20/23 04:27
Absolute Lymphs (auto) 0.8 10^3/uL (1.2-3.4) L 10/20/23 04:27
Absolute Monos (auto) 1.1 10^3/uL (0.1-0.6) H 10/20/23 04:27
Absolute Eos (auto) 0.5 10^3/uL (0-0.7) 10/20/23 04:27
Absolute Basos (auto) 0.1 10^3/uL (0-0.2) 10/20/23 04:27
Immature Gran % 1.9 % (0-0.5) H 10/20/23 04:27
Neutrophils % 79.1 % (42.2-75.2) H 10/20/23 04:27
Lymphocytes % 6.1 % (20.5-51.1) L 10/20/23 04:27
Monocytes % 8.2 % (1.7-9.3) 10/20/23 04:27
Eosinophils % 4.0 % (0-6) 10/20/23 04:27
Basophils % 0.7 % (0-2) 10/20/23 04:27
Creatinine 0.7 mg/dL (0.6-1.0) 10/21/23 04:28
Vital Signs
Vital Signs
Temp Pulse Resp BP Pulse Ox
97.5 F 70 18 183/92 95
10/21/23 07:00 10/21/23 07:00 10/21/23 07:00 10/21/23 07:00 10/21/23 07:00
[2023-10-21 11:10] LABS: NT-proBNP 554 pg/ml; Troponin I < 0.012 ng/ml
--- NOTE | 2023-10-21 12:11 | W.PN.HOSP.TC ---
Today's Communication/Plan
-
Chest CT
ECHO
Assessment / Plan
Assessment / Plan
83-year-old female past medical history of multiple myeloma on chemotherapy, hypertension, iron deficiency anemia, hyperlipidemia, prediabetes/steroid-induced hyperglycemia, presenting with generalized weakness, decreased p.o. intake and generally
feeling unwell over the past week. She went to [facility] on evening last week after a fall due to generalized weakness and was admitted until 2 days ago and discharged back home. During the hospitalization she was found to be
hypertensive and states that her losartan was increased from 50 mg to 100 mg. Patient was told that she will be going to rehab facility and it was unclear why she was discharged home as she continues to feel very weak.
Patient's friend was coming to pick her up to take her to oncology appointment today when the friend described the patient to look white as a ghost so they brought her to the emergency room. Friend notes the patient is better now and patient does
admit to feeling better although still weak.
She states that she has had a dry cough for the past 2 weeks with some shortness of breath with exertion. She had 2 chest x-rays performed by her primary care physician within the past week which were apparently unremarkable. She denies nausea or
vomiting, abdominal pain or diarrhea. She denies any urinary symptoms. She denies any fevers or chills. She denies any significant headache at this time. Denies any blurry vision. Denies any numbness or tingling or focal weakness. She does
sometimes feel dizzy. She has some increased lower extremity edema but has lost weight recently.
She last received chemotherapy a week ago and is supposed to receive it today.
She denies smoking or alcohol use.
Her last admission here in June noted suspicion of underlying arrhythmia and orthostatic hypotension and at that time her lisinopril was discontinued due to possible RAJIV inhibitor cough and switched to an ARB also may have had long QT at that
time
# Fatigue Unclear if related to hypertensive urgency. She has ankle edema and crackles in the lungs but her BNP was normal. Chest x-ray did not show any overt congestion signs. Doubt heart failure but her chest auscultation findings are very
prominent with crackles. Will get a chest CT to evaluate further. Leukocytosis as well noted on admission. Check a Procal. Evaluate for any infectious pathology given her cancer and treatment
# hypertensive urgency
-Blood pressure as high as 202/88
-IV labetalol given without any response
-Give IV hydralazine every 6 as needed
-Continue losartan 100 mg
-Continue metoprolol XL but increased today to 50 mg every 12
- Add Amlodipine if needed
- DW Onc today - her chemo regimen can elevate BP and cause cardiotoxicity -check ECHO.
# Leukocytosis likely secondary to weekly steroids but eval for pulmonary pathology given crackles. CT chest pending. UA ok on admission.Improving without abx.
-Continue to monitor
# Dry cough and dyspnea
- chest x-ray unremarkable
- COVID was negative
Incidentally discovered meningioma
-CT head shows 8 mm calcified meningioma in the left paramedian superior/anterior frontal region abutting the underlying left frontal lobe cortex without significant mass effect
Moderate bilateral leukomalacia
-No clinical signs or symptoms of CVA at this time
Multiple myeloma on chemotherapy
-Continue prophylactic acyclovir
History of syncopal episode attributed to vasovagal/orthostatic versus arrhythmia previously
Iron deficiency anemia
-Hemoglobin stable at 10.7
-Continue iron sulfate
Hyperlipidemia
-Continue statin
Prediabetes/steroid-induced hyperglycemia
-Hold glyburide
-Continue metformin
-Insulin sliding scale
Hypothyroidism
-Continue levothyroxine
Osteoporosis
-Continue Bactrim
DNR/DNI
DVT prophylaxis�heparin
Regular diet
Anticipated Discharge: > 48 hours
Subjective/Interval History
-
Date of Service: October 21, 2023
Ever since discharge from [facility] she still remained weak and tired and was not able to much for herself.
Blood pressure elevation has been a new phenomenon for her. They introduced losartan at [facility]. She is on beta-leonel as well.
Does not see any specialist for blood pressure management usually.
Denies any prior history of cardiac disease. She did notice some intermittent cough and also lower extremity edema especially in ankles. No palpitations.
Objective Data
-
Labs:
Laboratory Results
10/21/23
04:28
WBC 11.1 H
Hgb 10.1 L
Hct 30.8 L
Plt Count 308
Sodium 139
Potassium 3.8
Chloride 109 H
Carbon Dioxide 28
BUN 22 H
Creatinine 0.7
Glucose 120 H
Calcium 9.8
Vital Signs:
Vital Signs
Temp Pulse Resp BP Pulse Ox
97.5 F 70 18 183/92 95
10/21/23 07:00 10/21/23 07:00 10/21/23 07:00 10/21/23 07:00 10/21/23 07:00
I&O
10/20/23 10/21/23 10/22/23
06:59 06:59 06:59
Intake Total 480 / 480 2330 / 2330
Balance 480 / 480 2330 / 2330
Review of Systems
-
Constitutional: Denies Fever
EENT: Denies Sore Throat
Cardiac: Denies Chest Pain or Palpitations
Abdomen/GI: Denies Abdominal Pain, Nausea or Vomiting
Neuro: Denies Dizzy
Physical Exam
-
General: No Apparent Distress
HEENT: Moist Mucous Membranes
Respiratory: Crackles (BL in lower zones); Negative Wheezes
Cardiac: Regular Rhythm and S1/S2; Negative JVD
Musculoskeletal: Negative No Edema (BL ankle edema 1+)
Neuro: AO x 3
Psych: Calm
Data Reviewed
-
Labs: Labs Reviewed by me
[2023-10-21 13:45] LABS: Ferritin 52.3 ng/ml (11.1-264.0)
[2023-10-21 14:35] LABS: Procalcitonin < 0.05 ng/ml (0.0-0.25)
[2023-10-21] MEDS: THERAGRAN 1 TABLET PO (18:48)
[2023-10-21] MEDS: LIPITOR 10 MG PO (21:35)
[2023-10-21] MEDS: AMBIEN 5 MG PO (21:36)
[2023-10-22 03:00] VITALS: BP 152/91
[2023-10-22 06:20] LABS: Hematocrit 32.7 % (37.0-47.0); Hemoglobin 10.7 g/dL (12.0-16.0); Mean Corp Hgb Conc. 32.7 g/dL (33.0-37.0); Mean Corpuscular Hgb 33.5 pg (27.0-31.0); Mean Corpuscular Volume 102.5 fL (81.0-99.0); Mean Platelet Volume 10.9 fL (7.4-10.4); Platelet Count 350 10^3/uL (130-400); Red Blood Cell Count 3.19 10^6/uL (4.20-5.40); Red Cell Dist. Width 13.5 % (11.5-14.5); White Blood Cell Count 11.1 10^3/uL (4.8-10.8)
[2023-10-22 06:40] LABS: Blood Urea Nitrogen 22 mg/dl (7-17); Calcium 10.1 mg/dl (8.4-10.2); Carbon Dioxide 25 mmol/L (22-30); Chloride 110 mmol/L (98-107); Estimated Creatinine Clearance 42 ml/min; Glucose 89 mg/dl (70-99); Potassium 4.2 mmol/L (3.5-5.1); Sodium 140 mmol/L (135-145); eGFR > 60.00
[2023-10-22 07:00] VITALS: BP 173/91
[2023-10-22] MEDS: COZAAR 100 MG PO (08:48)
[2023-10-22] MEDS: VITAMIN D3 (cholecalciferol) 25 MCG PO (08:48)
[2023-10-22] MEDS: ZOVIRAX 400 MG PO ×2 (08:48→19:43)
[2023-10-22] MEDS: HEPARIN 5000 UNITS SC ×2 (08:48→19:44)
[2023-10-22] MEDS: TOPROL XL 50 MG PO ×2 (08:48→19:44)
[2023-10-22] MEDS: GLUCOPHAGE 500 MG PO (08:48)
--- NOTE | 2023-10-22 10:11 | W.PN.ONC ---
Today's Communication / Plan
-
Carfilzomib can cause hypertensive crisis; BP mgmt per primary team
Recommend holding myeloma treatment pending further workup and management
Echo pending, troponin/BNP not elevated
Chest CT without significant/concerning findings to explain cough/dyspnea
Pending echo, would benefit from onco-cardiology input (Dr. Elizalde or Dr. Aguilar)
Will follow along
Impression
Impression
Hypertensive urgency
Cough, dyspnea, rales on exam
IgA lambda multiple myeloma, on carfilzomib and dexamethasone per Dr Aden
Macrocytic anemia
History of pulmonary embolism, January 2022, likely provoked by Revlimid
Plan
Plan
Carfilzomib can cause hypertensive crisis, BP mgmt per primary team
Recommend holding myeloma treatment pending further workup and management
Echo pending, troponin/BNP not elevated
Chest CT without significant/concerning findings to explain cough/dyspnea
Pending echo, would benefit from onco-cardiology input (Dr. Elizalde or Dr. Aguilar)
Will follow along
Subjective/Objective
Subjective/Objective
no new complaints, worried about high BP
Vital Signs:
Vital Signs
Temp Pulse Resp BP Pulse Ox
97.9 F 67 17 173/91 94
10/22/23 07:00 10/22/23 07:00 10/22/23 07:00 10/22/23 07:00 10/22/23 07:00
Lab Results:
Laboratory Data
WBC 11.1 10^3/uL (4.8-10.8) H 10/22/23 05:50
Hgb 10.7 g/dL (12.0-16.0) L 10/22/23 05:50
Plt Count 350 10^3/uL (130-400) 10/22/23 05:50
eGFR > 60.00 10/22/23 05:50
Orders
Orders
Orders From Last 24 Hours
10/21/23 09:44
Add On- LAB Routine
10/21/23 10:13
CT Chest With Iv Contrast Routine
10/21/23 10:14
Echo 2D M-mode Dop w Strain Routine
10/21/23 10:35
Pro-BNP [NT-proBNP] Routine
Troponin I Routine
[2023-10-22] MEDS: NORVASC 5 MG PO (10:17)
[2023-10-22 11:00] VITALS: BP 178/99
[2023-10-22 15:00] VITALS: BP 173/82
--- NOTE | 2023-10-22 17:06 | W.PN.HOSP.TC ---
Today's Communication/Plan
-
ECHO in am
DC planning
Assessment / Plan
Assessment / Plan
83-year-old female past medical history of multiple myeloma on chemotherapy, hypertension, iron deficiency anemia, hyperlipidemia, prediabetes/steroid-induced hyperglycemia, presenting with generalized weakness, decreased p.o. intake and generally
feeling unwell over the past week. She went to [facility] on evening last week after a fall due to generalized weakness and was admitted until 2 days ago and discharged back home. During the hospitalization she was found to be
hypertensive and states that her losartan was increased from 50 mg to 100 mg. Patient was told that she will be going to rehab facility and it was unclear why she was discharged home as she continues to feel very weak.
Patient's friend was coming to pick her up to take her to oncology appointment today when the friend described the patient to look white as a ghost so they brought her to the emergency room. Friend notes the patient is better now and patient does
admit to feeling better although still weak.
She states that she has had a dry cough for the past 2 weeks with some shortness of breath with exertion. She had 2 chest x-rays performed by her primary care physician within the past week which were apparently unremarkable. She denies nausea or
vomiting, abdominal pain or diarrhea. She denies any urinary symptoms. She denies any fevers or chills. She denies any significant headache at this time. Denies any blurry vision. Denies any numbness or tingling or focal weakness. She does
sometimes feel dizzy. She has some increased lower extremity edema but has lost weight recently.
She last received chemotherapy a week ago and is supposed to receive it today.
She denies smoking or alcohol use.
Her last admission here in June noted suspicion of underlying arrhythmia and orthostatic hypotension and at that time her lisinopril was discontinued due to possible RAJIV inhibitor cough and switched to an ARB also may have had long QT at that
time
# Fatigue Unclear if related to hypertensive urgency. She has ankle edema and crackles in the lungs but her BNP was normal. Chest x-ray did not show any overt congestion signs. Doubt heart failure but her chest auscultation findings are very
prominent with crackles. chest CT shows a right lower lobe atelectasis or scarring this mild subpleural scarring subsegmental atelectasis both lower lobes but no obvious pneumonia. Might explain her crackles.. Leukocytosis close to normal .
Procal normal. dobut any active infection
# hypertensive urgency
-Blood pressure as high as 202/88
-IV labetalol given without any response
-Give IV hydralazine every 6 as needed
-Continue losartan 100 mg
-Continue metoprolol XL but increased today to 50 mg every 12
- Added Amlodipine
- DW Onc today - her chemo regimen can elevate BP and cause cardiotoxicity -check ECHO.
# Leukocytosis likely secondary to weekly steroids but eval for pulmonary pathology given crackles. CT chest as above. UA ok on admission.Improving without abx.
-Continue to monitor
# Dry cough and dyspnea
- chest x-ray unremarkable
- COVID was negative
Incidentally discovered meningioma
-CT head shows 8 mm calcified meningioma in the left paramedian superior/anterior frontal region abutting the underlying left frontal lobe cortex without significant mass effect
Moderate bilateral leukomalacia
-No clinical signs or symptoms of CVA at this time
Multiple myeloma on chemotherapy
-Continue prophylactic acyclovir
History of syncopal episode attributed to vasovagal/orthostatic versus arrhythmia previously
Iron deficiency anemia
-Hemoglobin stable at 10.7
-Continue iron sulfate
Hyperlipidemia
-Continue statin
Prediabetes/steroid-induced hyperglycemia
-Hold glyburide
-Continue metformin
-Insulin sliding scale
Hypothyroidism
-Continue levothyroxine
Osteoporosis
-Continue Bactrim
DNR/DNI
DVT prophylaxis�heparin
Regular diet
Anticipated Discharge: Within 24 hours
Subjective/Interval History
-
Date of Service: October 22, 2023
Feels ok today
Objective Data
-
Labs:
Laboratory Results
10/22/23
05:50
WBC 11.1 H
Hgb 10.7 L
Hct 32.7 L
Plt Count 350
Sodium 140
Potassium 4.2
Chloride 110 H
Carbon Dioxide 25
BUN 22 H
Creatinine 0.7
Glucose 89
Calcium 10.1
Vital Signs:
Vital Signs
Temp Pulse Resp BP Pulse Ox
98.3 F 74 19 173/82 97
10/22/23 15:00 10/22/23 15:00 10/22/23 15:00 10/22/23 15:00 10/22/23 15:06
I&O
10/21/23 10/22/23 10/23/23
06:59 06:59 06:59
Intake Total 2330 / 2330 2250 / 2250
Balance 2330 / 2330 2250 / 2250
Review of Systems
-
Respiratory: Denies Trouble Breathing
Cardiac: Denies Chest Pain
Abdomen/GI: Denies Abdominal Pain, Nausea or Vomiting
Neuro: Denies Dizzy
Physical Exam
-
General: No Apparent Distress
HEENT: Moist Mucous Membranes
Respiratory: Crackles (bibasal)
Cardiac: Regular Rhythm and S1/S2
GI: Soft
Neuro: AO x 3
Data Reviewed
-
CT Scan: Report Reviewed by me (CT chest)
Labs: Labs Reviewed by me
[2023-10-22] MEDS: THERAGRAN 1 TABLET PO (17:50)
[2023-10-22 19:00] VITALS: BP 202/108
[2023-10-22] MEDS: APRESOLINE 10 MG IV (19:44)
[2023-10-22] MEDS: LIPITOR 10 MG PO (19:49)
[2023-10-22] MEDS: AMBIEN 5 MG PO (19:49)
[2023-10-22 23:00] VITALS: BP 205/103
[2023-10-23] VITALS (7 sets, daily range): BP systolic 154–200; BP diastolic 78–101
[2023-10-23] MEDS: APRESOLINE 10 MG IV ×2 (00:08→08:27)
--- NOTE | 2023-10-23 00:19 | PTCARENOTE ---
Pt's blood pressure was elevated at the start of the shift 208/103, regular scheduled metoprolol given and prn hydralazine. Pt continues to have a high bp, now at 200/100 manual, second dose of hydralazine given, will recheck in 30 minutes.
[2023-10-23] MEDS: TOPROL XL 50 MG PO ×2 (08:25→20:11)
[2023-10-23] MEDS: NORVASC 5 MG PO (08:25)
[2023-10-23] MEDS: COZAAR 100 MG PO (08:26)
[2023-10-23] MEDS: GLUCOPHAGE 500 MG PO (08:26)
[2023-10-23] MEDS: ZOVIRAX 400 MG PO ×2 (08:26→20:11)
[2023-10-23] MEDS: VITAMIN D3 (cholecalciferol) 25 MCG PO (08:26)
[2023-10-23] MEDS: HEPARIN 5000 UNITS SC ×2 (08:28→20:10)
--- NOTE | 2023-10-23 08:51 | W.PN.HOSP.TC ---
Today's Communication/Plan
-
Needs better blood pressure control
Changed Losartan to BID
Increased Amlodipine dose
Echocardiogram
Assessment / Plan
Assessment / Plan
Physical Exam
General: No Apparent Distress
HEENT: Moist Mucous Membranes
Respiratory: Crackles (bibasal)
Cardiac: Regular Rhythm and S1/S2
GI: Soft
Neuro: AO x 3
Assessment/Plan
83-year-old female past medical history of multiple myeloma on chemotherapy, hypertension, iron deficiency anemia, hyperlipidemia, prediabetes/steroid-induced hyperglycemia, presenting with generalized weakness, decreased p.o. intake and generally
feeling unwell over the past week. She went to [facility] on evening last week after a fall due to generalized weakness and was admitted until 2 days ago and discharged back home. During the hospitalization she was found to be
hypertensive and states that her losartan was increased from 50 mg to 100 mg. Patient was told that she will be going to rehab facility and it was unclear why she was discharged home as she continues to feel very weak.
Patient's friend was coming to pick her up to take her to oncology appointment today when the friend described the patient to look white as a ghost so they brought her to the emergency room. Friend notes the patient is better now and patient does
admit to feeling better although still weak.
She states that she has had a dry cough for the past 2 weeks with some shortness of breath with exertion. She had 2 chest x-rays performed by her primary care physician within the past week which were apparently unremarkable. She denies nausea or
vomiting, abdominal pain or diarrhea. She denies any urinary symptoms. She denies any fevers or chills. She denies any significant headache at this time. Denies any blurry vision. Denies any numbness or tingling or focal weakness. She does
sometimes feel dizzy. She has some increased lower extremity edema but has lost weight recently.
She last received chemotherapy a week ago and is supposed to receive it today.
She denies smoking or alcohol use.
Her last admission here in June noted suspicion of underlying arrhythmia and orthostatic hypotension and at that time her lisinopril was discontinued due to possible RAJIV inhibitor cough and switched to an ARB also may have had long QT at that
time
# Fatigue Unclear if related to hypertensive urgency. She has ankle edema and crackles in the lungs but her BNP was normal. Chest x-ray did not show any overt congestion signs. Doubt heart failure but her chest auscultation findings are very
prominent with crackles. chest CT shows a right lower lobe atelectasis or scarring this mild subpleural scarring subsegmental atelectasis both lower lobes but no obvious pneumonia. Might explain her crackles.. Leukocytosis close to normal .
Procal normal. doubt any active infection
#Hypertensive urgency suspected secondary to her cancer medication/Carfilzomib
-Blood pressure was as high as 202/88
-IV labetalol given without any response
-Give IV hydralazine every 6 as needed
-Changed Losartan from 100 mg daily to Losartan 50 mg BID to give some nighttime coverage
-Continue Metoprolol XL but increased today to 50 mg every 12
-Amlodipine is a new medication -- increased to 10 mg daily on October 23, 2023
-Dr. Pickard discussed with oncologist - patient's chemo regimen can elevate BP and cause cardiotoxicity -check ECHO.
# Leukocytosis likely secondary to weekly steroids but eval for pulmonary pathology given crackles. CT chest as above. UA ok on admission.Improving without abx.
-Continue to monitor
# Dry cough and dyspnea
- chest x-ray unremarkable
- COVID was negative
Incidentally discovered meningioma
-CT head shows 8 mm calcified meningioma in the left paramedian superior/anterior frontal region abutting the underlying left frontal lobe cortex without significant mass effect
Moderate bilateral leukomalacia
-No clinical signs or symptoms of CVA at this time
Multiple myeloma on chemotherapy
-Continue prophylactic acyclovir
History of syncopal episode attributed to vasovagal/orthostatic versus arrhythmia previously
Iron deficiency anemia
-Hemoglobin stable
-Continue iron sulfate
Hyperlipidemia
-Continue statin
Prediabetes/steroid-induced hyperglycemia
-Hold glyburide
-Continue metformin
-Insulin sliding scale
Hypothyroidism
-Continue levothyroxine
Osteoporosis
-Continue Bactrim
DNR/DNI
DVT prophylaxis�heparin
Regular diet
Anticipated Discharge: 24 - 48 hours
Subjective/Interval History
-
Date of Service: October 23, 2023
Patient was seen and examined. She had some vomiting this morning needing Zofran.
Objective Data
-
Vital Signs:
Vital Signs
Temp Pulse Resp BP Pulse Ox
98.8 F 81 18 182/101 95
10/23/23 03:10 10/23/23 08:27 10/23/23 03:10 10/23/23 08:27 10/23/23 03:10
I&O
10/22/23 10/23/23 10/24/23
06:59 06:59 06:59
Intake Total 2250 / 2250 1530 / 1530
Balance 2250 / 2250 1530 / 1530
--- NOTE | 2023-10-23 12:46 | W.PN.ONC ---
Today's Communication / Plan
-
Await echo. Blood pressure remains elevated but acceptable. Unclear reason why she feels worse today.
Impression
Impression
Hypertensive urgency
Cough, dyspnea, rales on exam
IgA lambda multiple myeloma, on carfilzomib and dexamethasone per Dr Aden
Macrocytic anemia
History of pulmonary embolism, January 2022, likely provoked by Revlimid
Plan
Plan
Carfilzomib can cause hypertensive crisis, BP mgmt per primary team
Recommend holding myeloma treatment pending further workup and management
Echo pending, troponin/BNP not elevated
Chest CT without significant/concerning findings to explain cough/dyspnea
Pending echo, would benefit from onco-cardiology input (Dr. Elizalde or Dr. Aguilar)
Will follow along
Subjective/Objective
Subjective/Objective
She is discouraged, she says she feels worse today than yesterday. She has no specific symptoms, however. Physical examination is otherwise unchanged.
Vital Signs:
Vital Signs
Temp Pulse Resp BP Pulse Ox
98.4 F 81 17 182/101 96
10/23/23 07:25 10/23/23 08:27 10/23/23 07:25 10/23/23 08:27 10/23/23 07:25
Lab Results:
Laboratory Data
WBC 11.1 10^3/uL (4.8-10.8) H 10/22/23 05:50
Hgb 10.7 g/dL (12.0-16.0) L 10/22/23 05:50
Plt Count 350 10^3/uL (130-400) 10/22/23 05:50
eGFR > 60.00 10/22/23 05:50
[2023-10-23] MEDS: ZOFRAN 4 MG IV (15:14)
--- NOTE | 2023-10-23 16:29 | CM ---
Case management following for discharge planning
Cardiology following
Echo pending
PT recommending HH
CM will cont to follow
Plan - anticipate home with HH vs SNF when medically stable (will need auth if SNF)
[2023-10-23] MEDS: THERAGRAN 1 TABLET PO (17:42)
[2023-10-23] MEDS: AMBIEN 5 MG PO (21:03)
[2023-10-23] MEDS: LIPITOR 10 MG PO (21:03)
[2023-10-24] VITALS (7 sets, daily range): BP systolic 102–177; BP diastolic 62–91; O2SAT 97
[2023-10-24] MEDS: GLUCOPHAGE 500 MG PO (08:08)
[2023-10-24] MEDS: VITAMIN D3 (cholecalciferol) 25 MCG PO (08:08)
[2023-10-24] MEDS: ZOVIRAX 400 MG PO ×2 (08:08→20:07)
[2023-10-24] MEDS: HEPARIN 5000 UNITS SC ×2 (08:09→20:08)
[2023-10-24] MEDS: COZAAR 50 MG PO ×2 (08:12→20:07)
[2023-10-24] MEDS: NORVASC 10 MG PO (08:13)
[2023-10-24] MEDS: TOPROL XL 50 MG PO ×2 (08:13→20:08)
--- NOTE | 2023-10-24 14:26 | CM ---
regional loss prevention manager following for d/c planning
Pt ready for d/c
Seen by PT/OT - recommending HH - referral sent to [facility]
Referral accepted for RN/PT/OT
Discussed IMM with pt
Reports her son can transport her home later today
Called son Jude - [phone] - voicemail - unable to leave message - mailbox full
Will attempt to call back again
Plan - anticipate home with [facility] HH
--- NOTE | 2023-10-24 16:38 | W.PN.HOSP.TC ---
Today's Communication/Plan
-
PT/OT
Discharge planning/home care/case management working on it/has not been able to reach patient's son who would otherwise provide transport
Assessment / Plan
Assessment / Plan
Physical Exam
General: No Apparent Distress
HEENT: Moist Mucous Membranes
Respiratory: Crackles (bibasal)
Cardiac: Regular Rhythm and S1/S2
GI: Soft
Neuro: AO x 3
Assessment/Plan
83-year-old female past medical history of multiple myeloma on chemotherapy, hypertension, iron deficiency anemia, hyperlipidemia, prediabetes/steroid-induced hyperglycemia, presenting with generalized weakness, decreased p.o. intake and generally
feeling unwell over the past week. She went to [facility] on evening last week after a fall due to generalized weakness and was admitted until 2 days ago and discharged back home. During the hospitalization she was found to be
hypertensive and states that her losartan was increased from 50 mg to 100 mg. Patient was told that she will be going to rehab facility and it was unclear why she was discharged home as she continues to feel very weak.
Patient's friend was coming to pick her up to take her to oncology appointment today when the friend described the patient to look white as a ghost so they brought her to the emergency room. Friend notes the patient is better now and patient does
admit to feeling better although still weak.
She states that she has had a dry cough for the past 2 weeks with some shortness of breath with exertion. She had 2 chest x-rays performed by her primary care physician within the past week which were apparently unremarkable. She denies nausea or
vomiting, abdominal pain or diarrhea. She denies any urinary symptoms. She denies any fevers or chills. She denies any significant headache at this time. Denies any blurry vision. Denies any numbness or tingling or focal weakness. She does
sometimes feel dizzy. She has some increased lower extremity edema but has lost weight recently.
She last received chemotherapy a week ago and is supposed to receive it today.
She denies smoking or alcohol use.
Her last admission here in June noted suspicion of underlying arrhythmia and orthostatic hypotension and at that time her lisinopril was discontinued due to possible RAJIV inhibitor cough and switched to an ARB also may have had long QT at that
time
# Fatigue Unclear if related to hypertensive urgency. She has ankle edema and crackles in the lungs but her BNP was normal. Chest x-ray did not show any overt congestion signs. Doubt heart failure but her chest auscultation findings are very
prominent with crackles. chest CT shows a right lower lobe atelectasis or scarring this mild subpleural scarring subsegmental atelectasis both lower lobes but no obvious pneumonia. Might explain her crackles.. Leukocytosis close to normal .
Procal normal. doubt any active infection
#Hypertensive urgency suspected secondary to her cancer medication/Carfilzomib
-Blood pressure was as high as 202/88
-IV labetalol given without any response
-No IV hydralazine given since October 22, and BP has improved with new BP med regimen
-Changed Losartan from 100 mg daily to Losartan 50 mg BID to give some nighttime coverage -- BP has improved with this
-Continue Metoprolol XL but increased to 50 mg every 12
-Amlodipine is a new medication -- increased to 10 mg daily on October 23, 2023
-Dr. Pickard discussed with oncologist - patient's chemo regimen can elevate BP and cause cardiotoxicity - ECHO results noted
-Follow-up with cardiology outpatient
# Leukocytosis likely secondary to weekly steroids but eval for pulmonary pathology given crackles. CT chest as above. UA ok on admission.Improving without abx.
-Continue to monitor
# Dry cough and dyspnea
- chest x-ray unremarkable
- COVID was negative
Incidentally discovered meningioma
-CT head shows 8 mm calcified meningioma in the left paramedian superior/anterior frontal region abutting the underlying left frontal lobe cortex without significant mass effect
Moderate bilateral leukomalacia
-No clinical signs or symptoms of CVA at this time
Multiple myeloma on chemotherapy
-Continue prophylactic acyclovir
History of syncopal episode attributed to vasovagal/orthostatic versus arrhythmia previously
Iron deficiency anemia
-Hemoglobin stable
-Continue iron sulfate
Hyperlipidemia
-Continue statin
Prediabetes/steroid-induced hyperglycemia
-Hold glyburide
-Continue metformin
-Insulin sliding scale
Hypothyroidism
-Continue levothyroxine
Osteoporosis
-Continue Bactrim
DNR/DNI
DVT prophylaxis�heparin
Regular diet
Anticipated Discharge: 24 - 48 hours
Subjective/Interval History
-
Date of Service: October 24, 2023
Patient was seen and examined. She reported her vomiting and headache have resolved today. She denied any other new symptoms or complaints.
Objective Data
-
Labs:
Laboratory Results
10/24/23
16:34
WBC Pending
Hgb Pending
Hct Pending
Plt Count Pending
Sodium Pending
Potassium Pending
Chloride Pending
Carbon Dioxide Pending
BUN Pending
Creatinine Pending
Glucose Pending
Calcium Pending
Total Bilirubin Pending
AST Pending
ALT Pending
Alkaline Phosphatase Pending
Vital Signs:
Vital Signs
Temp Pulse Resp BP Pulse Ox
98.4 F 76 17 131/70 93
10/24/23 15:41 10/24/23 15:41 10/24/23 15:41 10/24/23 15:41 10/24/23 15:41
I&O
10/23/23 10/24/23 10/25/23
06:59 06:59 06:59
Intake Total 1530 / 1530 1180 / 1180
Balance 1530 / 1530 1180 / 1180
[2023-10-24 17:04] LABS: % Basophils 0.7 % (0-2); % Eosinophils 2.4 % (0-6); % Lymphocytes 6.8 % (20.5-51.1); % Monocytes 7.5 % (1.7-9.3); % Neutrophils 81.6 % (42.2-75.2); Absolute Basophils 0.1 10^3/uL (0-0.2); Absolute Eosinophils 0.3 10^3/uL (0-0.7); Absolute Immature Granulocytes 0.1 10^3/uL (0-0.05); Absolute Lymphocytes 0.8 10^3/uL (1.2-3.4); Absolute Monocytes 0.9 10^3/uL (0.1-0.6); Absolute Neutrophils 9.3 10^3/uL (1.4-6.5); Hematocrit 31.5 % (37.0-47.0); Hemoglobin 10.4 g/dL (12.0-16.0); Mean Platelet Volume 10.9 fL (7.4-10.4); Nucleated Red Blood Cells % 0 %; Platelet Count 350 10^3/uL (130-400); Red Blood Cell Count 3.15 10^6/uL (4.20-5.40); Red Cell Dist. Width 13.3 % (11.5-14.5); White Blood Cell Count 11.4 10^3/uL (4.8-10.8)
[2023-10-24 17:06] LABS: ALT (SGPT) 30 U/L (0-35); AST (SGOT) 25 U/L (14-36); Alkaline Phosphatase 154 U/L (38-126); Blood Urea Nitrogen 26 mg/dl (7-17); Calcium 10.2 mg/dl (8.4-10.2); Carbon Dioxide 27 mmol/L (22-30); Chloride 104 mmol/L (98-107); Estimated Creatinine Clearance 42 ml/min; Glucose 138 mg/dl (70-99); Magnesium 1.8 mg/dl (1.6-2.3); Sodium 136 mmol/L (135-145); Total Bilirubin 0.9 mg/dl (0.2-1.3); Total Protein 4.8 g/dl (6.3-8.2); eGFR > 60.00
[2023-10-24] MEDS: THERAGRAN 1 TABLET PO (17:15)
[2023-10-24] MEDS: LIPITOR 10 MG PO (21:51)
[2023-10-24] MEDS: AMBIEN 5 MG PO (21:51)
[2023-10-25 03:47] VITALS: BP 138/68
[2023-10-25 08:06] VITALS: BP 161/87
[2023-10-25] MEDS: VITAMIN D3 (cholecalciferol) 25 MCG PO (08:29)
[2023-10-25] MEDS: GLUCOPHAGE 500 MG PO (08:29)
[2023-10-25] MEDS: HEPARIN 5000 UNITS SC (08:29)
[2023-10-25] MEDS: TOPROL XL 50 MG PO (08:29)
[2023-10-25] MEDS: COZAAR 50 MG PO (08:30)
[2023-10-25] MEDS: NORVASC 10 MG PO (08:30)
[2023-10-25] MEDS: ZOVIRAX 400 MG PO (08:30)
--- NOTE | 2023-10-25 10:09 | CM ---
Case management following for /c planning
Spoke with pts son Jude [phone]
Updated son - aware [facility]'s[facility] will follow pt when d/c'ed
Discussed [employer] - per son currently does not have but would like more information. Feels would be good for his mother
Will leave copy of [employer] agency's with pt
Son also reports a family member will be available to assist mother at home as needed when discharged
Son can provide ride home when discharged
Plan - home with [facility]
Fax - [phone]
[2023-10-25 10:45] VITALS: BP 155/75
--- NOTE | 2023-10-25 12:14 | W.PN.HOSP.TC ---
Today's Communication/Plan
-
Discharge today
Assessment / Plan
Assessment / Plan
Physical Exam
General: No Apparent Distress
HEENT: Moist Mucous Membranes
Respiratory: Crackles (bibasal)
Cardiac: Regular Rhythm and S1/S2
GI: Soft
Neuro: AO x [address] Chest results, as per radiologist's report
IMPRESSION:
1. Small amount of airspace consolidation in the posterior basilar segment of the right lower lobe which is most likely atelectasis or scarring. Mild subpleural scarring and subsegmental atelectasis in both lower lobes.
2. Minimal bilateral pleural effusions.
3. Mild cardiomegaly.
4. Mild pulmonary arterial hypertension.
5. Severe osseous destruction and pathologic fracture of T9 with complete vertebral body collapse (MULTIPLE MYELOMA).
6. Chronic superior endplate fracture of T11 with severe loss of vertebral body height.
7. Multiple chronic healed left lateral rib fractures.

Echocardiogram results, as per skein yarn drier's report
CONCLUSIONS
1. Left ventricle: Normal size and function with mild concentric LVH. The
estimated ejection fraction is 55-60% by Mast's method of discs
2. Right ventricle: Normal size and function
3. Atria: Normal
4. Mitral valve: Mild to moderate mitral regurgitation
5. Aortic valve: Sclerotic. Trace aortic insufficiency
6. Tricuspid valve: Mild tricuspid regurgitation with estimated pulmonary
artery systolic pressures of 35-40 mmHg
7. When compared to the most recent echocardiogram from 08/08/2022 there has
been no significant change

Assessment/Plan
83-year-old female past medical history of multiple myeloma on chemotherapy, hypertension, iron deficiency anemia, hyperlipidemia, prediabetes/steroid-induced hyperglycemia, presented with generalized weakness, decreased p.o. intake and generally
feeling unwell over the previous week. She went to [facility] on evening last week after a fall due to generalized weakness and was admitted until 2 days ago and discharged back home. During the hospitalization she was found to
be hypertensive and states that her losartan was increased from 50 mg to 100 mg. Patient was told that she will be going to rehab facility and it was unclear why she was discharged home as she continues to feel very weak.
Patient's friend was coming to pick her up to take her to oncology appointment on the day of presentation when the friend described the patient to look white as a ghost so they brought her to the emergency room. Patient's friend noted that the
patient got better and patient did admit to feeling better although still weak.
She stated that she has had a dry cough for the 2 weeks prior to presentation, with some shortness of breath with exertion. She had 2 chest x-rays performed by her primary care physician within the 1 week prior to presentation, which were
apparently unremarkable. She denied nausea or vomiting, abdominal pain or diarrhea. She denied any urinary symptoms. She denied any fevers or chills. She denied any significant headache or blurry vision. Denied any numbness or tingling or focal
weakness. She does sometimes feel dizzy. She has some increased lower extremity edema but has lost weight recently.
She last received chemotherapy a week ago and is supposed to receive it on the day of presentation.
She denies smoking or alcohol use.
Her last admission here in June 2023 noted suspicion of underlying arrhythmia and orthostatic hypotension and at that time her lisinopril was discontinued due to possible RAJIV inhibitor cough and switched to an ARB also may have had long QT at
that time
# Fatigue Unclear if related to hypertensive urgency. She had ankle edema and crackles in the lungs but her BNP was normal. Chest x-ray did not show any overt congestion signs. Doubt heart failure but her chest auscultation findings are very
prominent with crackles. chest CT shows a right lower lobe atelectasis or scarring this mild subpleural scarring subsegmental atelectasis both lower lobes but no obvious pneumonia. Might explain her crackles.. Leukocytosis close to normal .
Procal normal. doubt any active infection
#Hypertensive urgency suspected secondary to her cancer medication/Carfilzomib
-Blood pressure was as high as 202/88
-IV labetalol was given without any response
-No IV hydralazine given since October 22, and BP has improved with new BP med regimen
-Changed Losartan from 100 mg daily to Losartan 50 mg BID to give some nighttime coverage -- BP has improved with this
-Continue Metoprolol XL but increased to 50 mg every 12
-Amlodipine is a new medication -- increased to 10 mg daily on October 23, 2023
-Dr. Pickard discussed with oncologist - patient's chemo regimen can elevate BP and cause cardiotoxicity - ECHO results noted
-Follow-up with cardiology outpatient
# Leukocytosis likely secondary to weekly steroids but eval for pulmonary pathology given crackles. CT chest as above. UA ok on admission.Improving without abx.
-Continue to monitor
-Recheck CBC outpatient
# Dry cough and dyspnea
- chest x-ray unremarkable
- COVID was negative
Incidentally discovered meningioma
-CT head shows 8 mm calcified meningioma in the left paramedian superior/anterior frontal region abutting the underlying left frontal lobe cortex without significant mass effect
Moderate bilateral leukomalacia
-No clinical signs or symptoms of CVA at this time
Multiple myeloma on chemotherapy
-Continue prophylactic acyclovir
History of syncopal episode attributed to vasovagal/orthostatic versus arrhythmia previously
Iron deficiency anemia
-Hemoglobin stable
-Continue iron sulfate
Hyperlipidemia
-Continue statin
Prediabetes/steroid-induced hyperglycemia
-Hold glyburide
-Continue metformin
-Insulin sliding scale
Hypothyroidism
-Continue levothyroxine
Osteoporosis
DNR/DNI
DVT prophylaxis�heparin
Low Sodium Diet
More than 30 minutes spent in discharge including
Final examination of the patient
Summarizing hospital stay
Instructions for continuing care to all relevant caregivers
Preparation of discharge records, prescriptions, and referral forms
Total time spent (in minutes): 38
Anticipated Discharge: Today
Subjective/Interval History
-
Date of Service: October 25, 2023
Patient was seen and examined. She denied any fever, nausea, vomiting, chest pain, shortness of breath, abdominal pain or any other symptoms or complaints. She said she has been getting up and walking around her room and the hallway.
Objective Data
-
Vital Signs:
Vital Signs
Temp Pulse Resp BP Pulse Ox
98.1 F 63 16 155/75 96
10/25/23 10:45 10/25/23 10:45 10/25/23 10:45 10/25/23 10:45 10/25/23 10:45
I&O
10/24/23 10/25/23 10/26/23
06:59 06:59 06:59
Intake Total 1180 / 1180 770 / 770
Balance 1180 / 1180 770 / 770
--- NOTE | 2023-10-25 13:31 | W.DS.TRANS ---
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
-
Discharge Instructions:
Discharge Diagnosis/Procedures #Fatigue
#Hypertensive Urgency
#Leukocytosis likely secondary to weekly
steroids
#Dry cough and dyspnea
#Incidentally discovered meningioma
#Moderate bilateral leukomalacia
#Multiple myeloma on chemotherapy
#History of syncopal episode attributed to
vasovagal/orthostatic versus arrhythmia
previously
#Iron deficiency anemia
#Hyperlipidemia
#Prediabetes/steroid-induced hyperglycemia
#Hypothyroidism
#Osteoporosis
CT Chest results, as per radiologist's report
IMPRESSION:
1. Small amount of airspace consolidation in
the posterior basilar segment of the right lower
lobe which is most likely atelectasis or
scarring. Mild subpleural scarring and
subsegmental atelectasis in both lower lobes.
2. Minimal bilateral pleural effusions.
3. Mild cardiomegaly.
4. Mild pulmonary arterial hypertension.
5. Severe osseous destruction and pathologic
fracture of T9 with complete vertebral body
collapse (MULTIPLE MYELOMA).
6. Chronic superior endplate fracture of T11
with severe loss of vertebral body height.
7. Multiple chronic healed left lateral rib
fractures.

Echocardiogram results, as per entry processor's
report
CONCLUSIONS
1. Left ventricle: Normal size and function
with mild concentric LVH. The
estimated ejection fraction is 55-60% by Mast
's method of discs
2. Right ventricle: Normal size and function
3. Atria: Normal
4. Mitral valve: Mild to moderate mitral
regurgitation
5. Aortic valve: Sclerotic. Trace aortic
insufficiency
6. Tricuspid valve: Mild tricuspid
regurgitation with estimated pulmonary
artery systolic pressures of 35-40 mmHg
7. When compared to the most recent
echocardiogram from 08/08/2022 there has
been no significant change
Diet 2 Gram Sodium,Low Sodium,Low Fat,Low Cholesterol
Activity As tolerated
Driving Restrictions No driving
Other Services VN
Instructions:
Stand-Alone Forms:
Changes to Home Medications: Yes
Discharge Medications:
DC Medications w/original date entered in [facility]
cholecalciferol (vitamin D3) 25 mcg (1,000 unit) tablet (Vitamin D3) 25 mcg PO DAILY Supplement 07/08/22
ibuprofen 400 mg tablet 400 mg PO Q8H PRN back pain 07/08/22
omega [id number]-fish oil 1,000 mg (120 mg-180 mg) capsule (Fish Oil) 1 cap PO QPM Supplement 07/08/22
therapeutic multivitamin 1 tab PO QPM Supplement 07/08/22
zolpidem 10 mg tablet 3.3 mg PO HS insomnia 07/08/22
acyclovir 400 mg tablet 400 mg PO BID Infection 10/19/23
ibandronate 150 mg tablet 150 mg PO QMONTH Osteoporosis 10/19/23
lovastatin 20 mg tablet 20 mg PO HS High Cholesterol 10/19/23
metformin 500 mg tablet 500 mg PO DAILY Diabetes 10/19/23
amlodipine 10 mg tablet 10 mg PO DAILY #30 tabs 10/25/23
losartan 50 mg tablet 50 mg PO BID #60 tabs 10/25/23
metoprolol succinate 50 mg tablet,extended release 24 hr 50 mg PO BID #60 tabs 10/25/23
Home Medication Changes
Losartan has been increased from 50 mg daily to 50 mg BID
Metoprolol Succinate has been increased from 25 mg BID to 50 mg BID
Amlodipine is a new medication
Pending Results: No
Total time spent discharging patient (in min): 38
--- NOTE | 2023-10-28 13:01 | W.DCSUMMARY ---
Discharge Summary
Discharge Data
Date of Admission: 10/23/23
Date of Discharge: 10/25/23
Total time spent discharging patient (in min): 38
-
Pending Results: No
Hospital Course
83-year-old female with past medical history of multiple myeloma on chemotherapy, hypertension, iron deficiency anemia, hyperlipidemia, prediabetes/steroid-induced hyperglycemia, presented with generalized weakness, decreased p.o. intake and
generally feeling unwell over the past week. Patient was admitted with hypertensive urgency and fatigue secondary to hypertensive urgency. Patient's systolic blood pressure was in the 200s, intravenous Labetalol was given without any response.
Patient's Toprol XL dose was increased. Oncology was consulted and they mentioned that patient's Carfilzomib can cause hypertensive crisis; patient had a CT Chest done for unexplained cough/dyspnea but the CT was without significant/concerning
findings to explain cough/dyspnea. Amlodipine was added for better blood pressure control. Echocardiogram was performed and showed ejection fraction of 55-60% and trivial pericardial effusion as per interior mechanic's report (please see full
echocardiogram report for further details). Patient's Losartan was changed from 100 mg daily to 50 mg BID for nighttime coverage. Patient's blood pressure improved and she was stable for discharge. Oncology mentioned recommending holding myeloma
treatment pending further workup and management and that patient would benefit from onco-cardiology input. Patient would need to follow-up closely with cardiology outpatient.
Discharge Plan
-
Patient Disposition: Home with Home Care
Discharge Diagnosis/Procedures: #Fatigue
#Hypertensive Urgency
#Leukocytosis likely secondary to weekly steroids
#Dry cough and dyspnea
#Incidentally discovered meningioma
#Moderate bilateral leukomalacia
#Multiple myeloma on chemotherapy
#History of syncopal episode attributed to vasovagal/orthostatic versus arrhythmia previously
#Iron deficiency anemia
#Hyperlipidemia
#Prediabetes/steroid-induced hyperglycemia
#Hypothyroidism
#Osteoporosis
CT Chest results, as per radiologist's report
IMPRESSION:
1. Small amount of airspace consolidation in the posterior basilar segment of the right lower lobe which is most likely atelectasis or scarring. Mild subpleural scarring and subsegmental atelectasis in both lower lobes.
2. Minimal bilateral pleural effusions.
3. Mild cardiomegaly.
4. Mild pulmonary arterial hypertension.
5. Severe osseous destruction and pathologic fracture of T9 with complete vertebral body collapse (MULTIPLE MYELOMA).
6. Chronic superior endplate fracture of T11 with severe loss of vertebral body height.
7. Multiple chronic healed left lateral rib fractures.

Echocardiogram results, as per interior mechanic's report
CONCLUSIONS
1. Left ventricle: Normal size and function with mild concentric LVH. The
estimated ejection fraction is 55-60% by Mast's method of discs
2. Right ventricle: Normal size and function
3. Atria: Normal
4. Mitral valve: Mild to moderate mitral regurgitation
5. Aortic valve: Sclerotic. Trace aortic insufficiency
6. Tricuspid valve: Mild tricuspid regurgitation with estimated pulmonary
artery systolic pressures of 35-40 mmHg
7. When compared to the most recent echocardiogram from 08/08/2022 there has
been no significant change
Condition: Fair
Diet: Low Fat, Low Cholesterol, Low Sodium and 2 Gram Sodium
Activity: As tolerated
Driving Restrictions: No driving
Other Services: VN
Referrals:
Gerard Ayers MD [Family Provider] - in less than 1 week
Additional Discharge Medication Instructions: Losartan has been increased from 50 mg daily to 50 mg BID
Metoprolol Succinate has been increased from 25 mg BID to 50 mg BID
Amlodipine is a new medication
Prescriptions:
New
losartan 50 mg Tablet
50 mg PO BID Qty: 60 1RF
metoprolol succinate 50 mg Tablet Extended Release 24 Hr
50 mg PO BID Qty: 60 1RF
amlodipine 10 mg Tablet
10 mg PO DAILY Qty: 30 1RF
Continued
zolpidem 10 mg tablet
3.3 mg PO HS
therapeutic multivitamin Tablet
1 tab PO QPM
ibuprofen 400 mg Tablet
400 mg PO Q8H PRN (Reason: back pain)
cholecalciferol (vitamin D3) [Vitamin D3] 25 mcg (1,000 unit) Tablet
25 mcg PO DAILY
omega 1-jxv-moe-fish oil [Fish Oil] 1,000 mg (120 mg-180 mg) Capsule
1 cap PO QPM
metformin 500 mg Tablet
500 mg PO DAILY
acyclovir 400 mg Tablet
400 mg PO BID
ibandronate 150 mg Tablet
150 mg PO QMONTH
lovastatin 20 mg Tablet
20 mg PO HS
Discontinued
losartan 50 mg Tablet
50 mg PO DAILY Qty: 30 3RF
metoprolol succinate 25 mg tablet extended release 24 hr
25 mg PO BID
Discharge Orders:
Discharge Patient (As Directed); Ordered 10/25/23
Ordered By: Claude Gerber
Discharge Date and Time
Discharge Date/Time: 10/25/23 14:21
Print Language: ARABIC
== END 2023-10-25 14:21 | disposition home health service (06) | DRG 305 ==
LOC: 3 WEST ACU 13:51
PROVIDERS: Internal Medicine; Physician Assistant Medical; ADMITTING PHYSICIAN Hospitalist; ATTENDING PHYSICIAN Hospitalist; CONSULT PHYSICIAN Internal Medicine Hematology & Oncology; EMERGENCY PHYSICIAN Student in an Organized Health Care Education/Training Program; FAMILY PHYSICIAN Family Medicine; OTHER PHYSICIAN Internal Medicine Hematology & Oncology
DX: I16.1 Hypertensive emergency (principal); C90.00 Multiple myeloma not having achieved remission; J98.11 Atelectasis; D50.9 Iron deficiency anemia, unspecified; D53.9 Nutritional anemia, unspecified; E78.00 Pure hypercholesterolemia, unspecified; E03.9 Hypothyroidism, unspecified; M81.0 Age-related osteoporosis without current pathological fracture; Z66 Do not resuscitate; Z11.52 Encounter for screening for COVID-19
CPT/HCPCS: 71046; 71260; 80048; 80053; 81003; 81015; 82607; 82728; 83735; 83880; 84145; 84484; 85025; 85027; 87811; 93005; 93306; 93356; 96374; 96375; 97116; 97166; 97530; 97535; 99285; Q9967